=== PATIENT | female | born 1985 | race Caucasian/White ===

== ENCOUNTER 2023-07-17 15:06 | Emergency (ER) | payer BC ==
[~2023-07-17] VITALS: Ht 160 cm; Wt 63.3 kg
[2023-07-17 15:18] VITALS: BP 156/101; PULSE 83; RESP 20; TEMP 97.7; O2SAT 96
[2023-07-17] MEDS ORDERED: IBUP-2213 PO (18:50)
[2023-07-17] MEDS ORDERED: LID5T TP (18:50)
[2023-07-17] MEDS ORDERED: ROBAC PO (18:50)
[2023-07-17 18:58] VITALS: BP 114/67; PULSE 76; RESP 16; O2SAT 98
== END 2023-07-17 18:59 | disposition home or self-care (01) ==
LOC: MED 15:06
DX: J06.9 Acute upper respiratory infection, unspecified (principal); M54.10 Radiculopathy, site unspecified; R03.0 Elevated blood-pressure reading, without diagnosis of hypertension; Z79.899 Other long term (current) drug therapy; Z79.1 Long term (current) use of non-steroidal anti-inflammatories (NSAID)
CPT/HCPCS: 71045; 99283; Q0092